=== PATIENT | male | born 1985 | race Hispanic/Latino ===

== ENCOUNTER 2019-11-30 11:44 | Emergency (ER) | payer SELFPAY ==
[2019-11-30] MEDS ORDERED: THIAMINE 100 MG, FOLIC ACID 1 MG, MULTIPLE VITAMIN INJ, ADULT 10 ML in SODIUM CHLORIDE ... IV ONE (12:28)
[2019-11-30] MEDS ORDERED: LORazepam 2 MG/ML VIAL IV PRN ×2 (12:29)
[2019-11-30] MEDS ORDERED: ONDANSETRON 4 MG/2 ML INJ IV ONE (12:43)
[2019-11-30] MEDS: LORazepam 2 MG/ML VIAL IV PRN ×2 (12:45→17:10)
--- NOTE | 2019-11-30 13:02 | Emergency Department Report ---
ED Alcohol HPI - General Chief Complaint: Alcohol Stated Complaint: VOMITTIN, WITHDRAWALS Time Seen by Provider: 11/30/19 12:28 Source: patient Mode of arrival: Ambulatory Limitations: No Limitations - History of Present Illness Initial Comments: Patient is 34 years old male with history of chronic alcoholism. Patient presented to the ER requesting medical clearance for alcohol detox. Patient stated that he drinks daily. Patient stated that he used to drink liquor but he ran out of money and now he is drinking beer every day. Patient stated last drink this morning. Patient found to be shaking and actively vomiting here in the emergency room. IV line immediately obtained and patient started banana bag and CIWA protocol initiated and patient received Ativan and Zofran. Patient currently denying any visual hallucination or auditory hallucination. He he stated that he is depressed and he has thoughts of hurting himself. Patient denied homicidal ideation. Patient also denied any seizure. 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 Alcohol Use: Yes Recent Trauma: No Associated Symptoms: nausea, vomiting Treatments Prior to Arrival: none - Related Data Previous Rx's Medication Instructions Recorded Last Taken Type Ondansetron [Zofran Odt] 4 mg PO Q8HR PRN #14 tab.rapdis 11/30/19 Unknown Rx chlordiazePOXIDE [Librium] 25 mg PO Q8H #10 capsule 11/30/19 Unknown Rx Allergies Allergy/AdvReac Type Severity Reaction Status Date / Time No Known Allergies Allergy Verified 11/30/19 11:54 ED Review of Systems ROS: Stated complaint: VOMITTIN, WITHDRAWALS Other details as noted in HPI Comment: All other systems reviewed and negative Constitutional: denies: chills, fever Respiratory: denies: cough, shortness of breath, SOB with exertion Cardiovascular: palpitations Gastrointestinal: nausea, vomiting. denies: abdominal pain, diarrhea, constipation, hematemesis, melena, hematochezia Musculoskeletal: denies: back pain Neurological: denies: headache, weakness, numbness, paresthesias, confusion, abnormal gait Psychiatric: anxiety, depression, suicidal thoughts. denies: auditory hallucinations, visual hallucinations, homicidal thoughts ED Past Medical Hx - Past Medical History Previous Medical History?: No - Surgical History Past Surgical History?: No - Social History Smoking Status: Never Smoker Substance Use Type: Alcohol - Medications Home Medications: Home Medications Medication Instructions Recorded Confirmed Last Taken Type Ondansetron [Zofran Odt] 4 mg PO Q8HR PRN #14 tab.rapdis 11/30/19 Unknown Rx chlordiazePOXIDE [Librium] 25 mg PO Q8H #10 capsule 11/30/19 Unknown Rx ED Physical Exam - General Limitations: No Limitations General appearance: alert, anxious, other (Actively vomiting in the ER.) - Head Head exam: Present: atraumatic, normocephalic, normal inspection - Eye Eye exam: Present: normal appearance - ENT ENT exam: Present: mucous membranes dry - Neck Neck exam: Present: normal inspection, full ROM. Absent: tenderness, meningismus, lymphadenopathy, thyromegaly - Respiratory Respiratory exam: Present: normal lung sounds bilaterally - Cardiovascular Cardiovascular Exam: Present: tachycardia - GI/Abdominal GI/Abdominal exam: Present: soft, normal bowel sounds. Absent: distended, tenderness, guarding, rebound, rigid, organomegaly, mass, bruit, pulsatile mass, hernia - Extremities Exam Extremities exam: Present: normal inspection, full ROM, normal capillary refill. Absent: pedal edema, calf tenderness - Back Exam Back exam: Present: normal inspection, full ROM. Absent: CVA tenderness (R), CVA tenderness (L) - Neurological Exam Neurological exam: Present: alert, oriented X3, CN II-XII intact, normal gait, reflexes normal - Psychiatric Psychiatric exam: Present: depressed, anxious, suicidal ideation. Absent: agitated, flat affect, manic, homicidal ideation - Skin Skin exam: Present: warm, intact, normal color ED Course Vital Signs 11/30/19 11/30/19 11/30/19 11:57 12:29 12:30 Temperature 97.9 F Pulse Rate 138 H Respiratory 22 Rate Blood Pressure 164/118 145/106 Blood Pressure [Left] O2 Sat by Pulse 95 92 92 Oximetry 11/30/19 11/30/19 11/30/19 12:45 13:00 13:14 Temperature Pulse Rate 133 H 114 H Respiratory 28 H 18 Rate Blood Pressure 145/106 134/91 Blood Pressure [Left] O2 Sat by Pulse 95 93 93 Oximetry 11/30/19 11/30/19 11/30/19 13:30 14:00 14:30 Temperature Pulse Rate 112 H 111 H Respiratory 16 17 Rate Blood Pressure 124/88 131/87 127/86 Blood Pressure [Left] O2 Sat by Pulse 96 95 90 Oximetry 11/30/19 11/30/19 11/30/19 15:00 15:30 16:00 Temperature Pulse Rate 107 H 106 H 97 H Respiratory 20 17 18 Rate Blood Pressure 120/83 124/84 121/86 Blood Pressure [Left] O2 Sat by Pulse 95 Oximetry 11/30/19 11/30/19 11/30/19 16:30 17:00 21:30 Temperature Pulse Rate 104 H 107 H 102 H Respiratory 18 17 Rate Blood Pressure 120/84 137/94 Blood Pressure 132/92 [Left] O2 Sat by Pulse 91 94 98 Oximetry ED Medical Decision Making - Lab Data Result diagrams: 11/30/19 12:49 11/30/19 12:49 - EKG Data -: EKG Interpreted by Me EKG shows normal: sinus rhythm Rate: tachycardia - EKG Data Interpretation: no acute changes - Medical Decision Making Patient is 34 years old male with history of chronic alcoholism. Patient presented to the ER requesting medical clearance for alcohol detox. Patient stated that he drinks daily. Patient stated that he used to drink liquor but he ran out of money and now he is drinking beer every day. Patient stated last drink this morning. Patient found to be shaking and actively vomiting here in the emergency room. IV line immediately obtained and patient started banana bag and CIWA protocol initiated and patient received Ativan and Zofran. Patient currently denying any visual hallucination or auditory hallucination. He he stated that he is depressed and he has thoughts of hurting himself. Patient denied homicidal ideation. Patient also denied any seizure. Labs reviewed and is unremarkable. Patient has been evaluated by our psychiat awais team and advised patient can be discharged home to follow-up as an outpatient. Local resources for follow-up has been given to the patient. Critical care attestation.: If time is entered above; I have spent that time in minutes in the direct care of this critically ill patient, excluding procedure time. ED Disposition Clinical Impression: Acute nausea with nonbilious vomiting, Withdrawal symptoms, alcohol Disposition: DC-01 TO HOME OR SELFCARE Is pt being admited?: No Condition: Stable Instructions: Abuse of Alcohol (ED) Additional Instructions: In case of an emergency, please contact the following numbers: [place] Crisis and Access Line: Number: Crisis Text Line: (Text START) Number: 127052 Suicide Prevention Line: Number: Emergency Number: 911 SUBSTANCE ABUSE PROGRAMS: [facility]: Location: [place], [place] [employer] Address: [address] [place] [address] [facility]: Address: [address] [place] [address] [facility]: Address: [address] [place] [address] [facility]: Address: [address] [place] [address] [facility] Address: [address] [place] [address]. Please contact above numbers to attempt placement into free based program. Medicaid Programs: [facility]: Address: [address] [place] [id number] [facility]: Address: [address] [place] [id number] Prescriptions: chlordiazePOXIDE [Librium] 25 mg PO Q8H #10 capsule Ondansetron [Zofran Odt] 4 mg PO Q8HR PRN #14 tab.rapdis PRN Reason: Nausea And Vomiting Referrals: PRIMARY CARE,MD [Primary Care Provider] - 3-5 Days
[2019-11-30 13:26] LABS: Mean Corpuscular HGB Conc 35 % (32-34); Mean Corpuscular Volume 89 fl (84-94); Red Blood Count 5.63 M/mm3 (3.65-5.03); Red Cell Distribution Width 14.8 % (13.2-15.2)
[2019-11-30 13:30] LABS: BUN/Creatinine Ratio 3; Blood Urea Nitrogen 2 mg/dL (9-20); Calcium 10.4 mg/dL (8.4-10.2); Hemolysis Index 28
[2019-11-30 13:34] LABS: Albumin 4.6 g/dL (3.9-5); Bilirubin,Direct 0.3 mg/dL (0-0.2); Hematocrit 50.1 % (35.5-45.6); Hemoglobin 17.7 gm/dl (11.8-15.2)
[2019-11-30 13:37] LABS: INR 0.86 (0.87-1.13)
[2019-11-30 13:38] LABS: Partial Thromboplastin Time 22.1 Sec. (24.2-36.6)
[2019-11-30] MEDS ORDERED: POTASSIUM CHLORIDE 10 MEQ 10 MEQ/100 ML BAG IV SCH (14:00)
[2019-11-30 17:33] LABS: Basophils % (Manual) 0 % (0.0-1.8); Eosinophils % (Manual) 0 % (0.0-4.3); Total Cells Counted 100
[2019-11-30 17:34] LABS: Platelet Estimate Consistent w Auto
[2019-11-30 17:35] LABS: Anisocytosis RARE; Large Platelets Few; Ovalocytes Rare
[2019-11-30 17:36] LABS: Platelet Count 136 K/mm3 (140-440)
[2019-11-30] MEDS ORDERED: SODIUM CHLORIDE 0.9% 1000 ML 1,000 ML IV ONE (18:28)
[2019-11-30 21:49] VITALS: BP 132/92
== END 2019-11-30 21:35 | disposition home or self-care (01) ==
LOC: ED 11:44
DX: R11.2 Nausea with vomiting, unspecified (principal); F10.129 Alcohol abuse with intoxication, unspecified
CPT/HCPCS: 36415; 80048; 80076; 83690; 83735; 85007; 85025; 85610; 85730; 93005; 96361; 96365; 96366; 96375; 99284; J2060; J2405; J3411; J3480; J7030; 80320; G0480